=== PATIENT | female | born 1975 | race Asian ===

== ENCOUNTER 2024-11-12 05:09 | Day surgery (SDC) | payer OTHER ==
[2024-11-07 11:14] VITALS: BMI 23.3
[2024-11-12] MEDS ORDERED: LIDOCAINE HCL 1%, 10 MG/ML (20ML VIAL) ONE ×2 (11:26→11:29)
[2024-11-12] MEDS ORDERED: ISOSULFAN BLUE 50 MG/5 ML VIAL SQ ONE (11:29)
[2024-11-12] MEDS ORDERED: MIDAZOLAM HCL 2 MG/2 ML SINGLE DOSE VIAL ONE (12:43)
[2024-11-12] MEDS ORDERED: PROPOFOL 20 ML ONE (12:43)
[2024-11-12] MEDS ORDERED: LACTATED RINGERS SOLUTION 1,000 ML IV SCH (14:45)
[2024-11-12] MEDS ORDERED: ONDANSETRON 4 MG/2 ML VIAL IVPUSH PRN (14:45)
[2024-11-12 17:22] VITALS: BP 136/87; PULSE 97; RESP 18; TEMP 97.1
== END 2024-11-12 18:00 | disposition home or self-care (01) ==
LOC: JASU-SURG 05:09
PROVIDERS: ATTEND Surgery
PROC: 0HBU0ZZ Excision of Left Breast, Open Approach (ICD-10-PCS; principal; 2024-11-12 11:00)
DX: C50.912 Malignant neoplasm of unspecified site of left female breast (principal)
CPT/HCPCS: 78195-TC; 81025; 88307-TC; 94760; A9541